=== PATIENT | female | born 1955 | race Caucasian/White ===

== ENCOUNTER 2018-04-19 10:07 | Day surgery (SDC) | payer OTHER ==
[2018-04-18 15:49] VITALS: BMI 28.1
[2018-04-19] MEDS ORDERED: PROPOFOL 20 ML ONE (10:24)
[2018-04-19] MEDS ORDERED: Bupivacaine/Epinephrine 0.25% 30 ML VIAL ONE (10:28)
[2018-04-19] MEDS ORDERED: Bupivacaine HCl 0.5%/Epinephrine 1:200,000/PF 30 ml Vial ONE ×2 (10:28→15:38)
[2018-04-19] MEDS ORDERED: Fentanyl 100 MCG/2 ML VIAL ONE (10:29)
[2018-04-19] MEDS ORDERED: CEFAZOLIN/Water 2 GM/20 ML SYRINGE ONE (10:46)
[2018-04-19 10:53] LABS: #Basophils 0.1 thou/uL (0.0-0.2); #Lymphocytes 1.8 thou/uL (1.20-3.40); #Monocytes 0.4 thou/uL (0.11-0.59); #Neutrophils 3.3 thou/uL (1.40-6.50); %Basophils 1.8 % (0.0-1.0); %Eosinophils 0.8 % (0.0-10.0); %Lymphocytes 31.6 % (21.0-51.0); %Monocytes 7.1 % (0.0-10.0); %Neutrophils 58.7 % (42.0-75.0); Hemoglobin 13.8 g/dL (12.0-16.0); Mean Corpuscular HGB CONC 33.3 g/dL (32.0-36.0); Mean Corpuscular Hemoglobin 30.8 pg (27.0-31.0); Mean Corpuscular Volume 92.4 fl (81.0-99.0); Mean Platelet Volume 6.5 fL (7.4-10.4); Platelet Count 278 thou/uL (130-400); RBC Distribution Width 12.3 % (11.5-14.5); Red Blood Cell (RBC) Count 4.48 mill/uL (4.20-5.40); White Blood Cell (WBC) Count 5.6 thou/uL (4.8-10.8)
[2018-04-19 11:09] LABS: Anion Gap 12 mmol/L (10-20); BUN (Urea Nitrogen) 26 mg/dL (9.8-20.1); Calc. Creatinine Clearance 72 mL/min (70-130); Calcium 9.6 mg/dL (7.8-10.44); Carbon Dioxide 27 mmol/L (23-31); Chloride 106 mmol/L (98-107); Estimated GFR-MDRD 68; Glucose 85 mg/dL (80-115); Potassium 4.3 mmol/L (3.5-5.1); Sodium 141 mmol/L (136-145)
[2018-04-19] MEDS ORDERED: Lidocaine 2% w/Epinephrine 1:200K 20 ML VIAL ONE (15:38)
[2018-04-19] MEDS ORDERED: Lidocaine 1% PF 5 ML VIAL ONE (15:53)
[2018-04-19] MEDS ORDERED: Ketorolac Tromethamine 30 MG/ML VIAL ONE (15:53)
[2018-04-19] MEDS ORDERED: PROPOFOL 200 MG/20 ML VIAL ONE (15:53)
[2018-04-19] MEDS ORDERED: Ondansetron HCl/PF 4 MG/2 ML Vial ONE (15:53)
--- NOTE | 2018-04-21 16:49 | OP ---
DATE OF PROCEDURE: 04/19/2018. PREOPERATIVE DIAGNOSIS: Right knee medial and lateral meniscus tears. POSTOPERATIVE DIAGNOSES: 1. Right knee medial and lateral meniscus tears. 2. 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 SURGERIES PERFORMED: 1. Right knee arthroscopy with partial medial and lateral meniscectomies. 2. Removal of any loose unstable cartilage flaps at the knee. SURGEON: Russel Gonzales M.D. FLOUR DISTRIBUTOR: None. BLOOD LOSS: Minimal. COMPLICATIONS: None. ANESTHESIA: She had general anesthetic and also had local knee block. She went to recovery in stable condition. INDICATIONS: A 62-year-old active female comes in with continued problems with catching and swelling in the knee and despite nonoperative treatment continued to have her symptoms. We discussed the operative treatment options including a knee replacement versus general knee arthroscopy, and she wished for the knee arthroscopy. OPERATIVE PROCEDURE: After all appropriate consent forms were explained and signed, she was taken to the operating room and at this time was given general anesthetic. Once anesthesia was appropriate, a tourniquet was placed onto the right thigh and the leg was placed in an arthroscopic leg gonzalez. The leg was then prepped and draped in the standard surgical fashion. Limb was exsanguinated and tourniquet was taken to 300 mmHg. A lateral portal was established and the scope was placed into the knee joint. Needle localization technique was then used to make a medial working portal. Diagnostic arthroscopy commenced and notched, ACL and PCL probe found to be intact. Medial compartment showed some grade II chondral changes as well as some grade 3 chondral changes on the femur as well the tibial plateau. Any loose cartilage flaps were gently debrided. There was a complex degenerative tear at posterior horn of the medial meniscus and a partial meniscectomy was performed using meniscal biter and shaver back to a stable base. Once this was done, attention was turned to the lateral compartment, again some degenerative tearing was noted in the body and the posterior horn of the lateral meniscus. Partial meniscectomy was performed again using meniscal biter and shaver. There were some grade II changes on the lateral tibial plateau. The lateral femur overall was in good condition. The gutters were then swept through and no loose bodies noted. There were some significant osteophytes noted on the medial and lateral femoral condyles. We then went to the suprapatellar pouch. There were multiple small cartilaginous loose bodies which were then removed with the suction shaver device. Significant synovitis was also debrided with the suction shaver. The patella and trochlea were noted to have some stable chondral changes, especially the trochlea. The patella overall was in good condition. At this time, scope was removed, knee was drained, and portals closed with simple nylon stitch. Bulky sterile dressing was applied and the tourniquet let down. Toes pinked up nicely. The patient was awakened and taken to the recovery room in stable condition. All counts were correct at the end of the case. She received preoperative IV antibiotics. LATRELL
== END 2018-04-19 13:48 | disposition home or self-care (01) ==
LOC: CANPRESDC → SDC 10:07
PROVIDERS: ATTEND Orthopaedic Surgery
PROC: 0SBC4ZZ Excision of Right Knee Joint, Percutaneous Endoscopic Approach (ICD-10-PCS; principal; 2018-04-19)
DX: M23.321 Other meniscus derangements, posterior horn of medial meniscus, right knee (principal); M23.351 Other meniscus derangements, posterior horn of lateral meniscus, right knee; M94.261 Chondromalacia, right knee; F41.9 Anxiety disorder, unspecified; F32.9 Major depressive disorder, single episode, unspecified; E78.00 Pure hypercholesterolemia, unspecified; E55.9 Vitamin D deficiency, unspecified; E05.00 Thyrotoxicosis with diffuse goiter without thyrotoxic crisis or storm; Z79.899 Other long term (current) drug therapy
CPT/HCPCS: 80048; 85025; 93005; 93010; G8978-GP-CJ; G8979-GP-CJ; G8980-GP-CJ; J0670; J1885; J2001; J2405; J2704; J3010

== ENCOUNTER 2019-08-19 09:31 | Outpatient (CLI) | payer MEDICARE ==
[2019-08-19 11:31] LABS: #Eosinphils 0.1 thou/uL (0.0-0.7); #Lymphocytes 1.5 thou/uL (1.20-3.40); #Monocytes 0.5 thou/uL (0.11-0.59); #Neutrophils 2.7 thou/uL (1.40-6.50); %Basophils 0.8 % (0.0-1.0); %Eosinophils 1.6 % (0.0-10.0); %Monocytes 10.7 % (0.0-10.0); %Neutrophils 55.9 % (42.0-75.0); Hemoglobin 13.5 g/dL (12.0-16.0); Mean Corpuscular Hemoglobin 31.2 pg (27.0-31.0); Mean Corpuscular Volume 91.9 fL (78.0-98.0); Mean Platelet Volume 7.4 fL (7.4-10.4); Platelet Count 235 thou/uL (130-400); RBC Distribution Width 12.1 % (11.5-14.5); Red Blood Cell (RBC) Count 4.32 mill/uL (4.20-5.40); White Blood Cell (WBC) Count 4.9 thou/uL (4.8-10.8)
[2019-08-19 11:34] LABS: Anion Gap 11 mmol/L (10-20); BUN (Urea Nitrogen) 29 mg/dL (9.8-20.1); Calc. Creatinine Clearance 0 mL/min (70-130); Calcium 9.6 mg/dL (7.8-10.44); Carbon Dioxide 27 mmol/L (23-31); Chloride 106 mmol/L (98-107); Estimated GFR-MDRD 55; Glucose 60 mg/dL (80-115); Potassium 4.3 mmol/L (3.5-5.1); Sodium 140 mmol/L (136-145)
== END 2019-08-19 09:32 | disposition home or self-care (01) ==
LOC: LABBT 09:31
PROVIDERS: ATTEND Orthopaedic Surgery
DX: Z01.818 Encounter for other preprocedural examination (principal); S83.207A Unspecified tear of unspecified meniscus, current injury, left knee, initial encounter
CPT/HCPCS: 80048; 85025; 93005; 93010

== ENCOUNTER 2019-08-22 08:16 | Day surgery (SDC) | payer MEDICARE ==
[2019-08-22] MEDS ORDERED: Fentanyl 100 MCG/2 ML VIAL ONE ×2 (09:11→10:06)
[2019-08-22] MEDS ORDERED: Midazolam HCl 2 mg/2 ml Vial ONE (09:11)
--- NOTE | 2019-08-22 15:27 | OP ---
DATE OF PROCEDURE: 08/22/2019 PREOPERATIVE DIAGNOSIS: Left knee medial and lateral meniscus tears. POSTOPERATIVE DIAGNOSES: 1. Left knee medial and lateral meniscus tears. 2. Grade 4 lesions on the medial femoral condyle, medial tibial plateau, lateral femoral condyle, and the trochlea. PROCEDURES PERFORMED: 1. Left knee arthroscopy, partial medial and lateral meniscectomies. 2. Debridement and shaving of unstable chondral flaps throughout the knee. CHARGE OUT CLERK: None. COMPLICATIONS: None. ESTIMATED BLOOD LOSS: Minimal. ANESTHESIA: The patient did have a general anesthetic as well as a local knee block. DISPOSITION: She went to recovery room in stable condition. INDICATIONS: Ms. Barksdale is a 64-year-old female, who is active, who had degenerative knee arthroscopy done in her other knee a year or 2 ago and has done very well from this. At this time, she is having a very hard time getting around on her knee. She is having to use an ambulatory assistive device and her knee is swelling and she was found to have significant meniscal tears and at this time opted for surgery. DESCRIPTION OF PROCEDURE: After all appropriate consent forms were explained and signed, she was taken to the operating room and at this time was given general anesthetic. Once the level of anesthesia was appropriate, tourniquet was placed on left thigh. Leg was then placed in arthroscopic leg gonzalez. The limb was then prepped and draped in standard surgical fashion. The limb was exsanguinated and tourniquet was taken to 300 mmHg. Inferolateral portal was established. The scope was placed into the knee joint. A needle localization technique was then used to make our medial working portal. Diagnostic arthroscopy commenced in the notch. The ACL and PCL were probed, found to be intact. The medial femoral condyle had large area of grade 3 and just small grade 4 areas. There was not any significant unstable cartilage flaps noted. The medial tibial plateau was also noted to have some grade 2 and 3 changes. There was one small area of grade 4 change on the medial tibial plateau. There was a complex degenerative tear noted of the body and posterior horn of the medial meniscus and a partial meniscectomy was performed using meniscal biter and shaver. Lateral compartment was evaluated. There was a grade 4 lesion on the lateral femoral condyle with some large unstable chondral flaps on the periphery. These were taken down with a shaver to get to stable clement and in the end, this was approximately 8-mm medial-lateral and a little bit over a centimeter from anterior-posterior. The remaining portion of the cartilage on the lateral femoral condyle was in good condition. There was a degenerative tear of the lateral meniscus including the body and the posterior horn and again, partial meniscectomy was performed using meniscal biter and shaver. There was also grade 2 and 3 change noted on the lateral tibial plateau. At this time, the gutters were swept through. There were no loose bodies noted. However, there were some osteophytes noted of both medial and lateral. We then got the patellofemoral joint and found the trochlea and the patella to have grade 3 and 4 changes. No significant loose cartilage flaps were noted. We then evaluated the knee joint through full range of motion and found the patient to have an impinging osteophyte on the tibia just distal to the ACL insertion. This was taken down with the shaver, so would no longer hit the femur in full extension. Once this was done, the scope was removed. Knee was drained. Portals were closed with simple nylon stitch. Bulky sterile dressing was applied. Tourniquet was let down. Toes pinked up nicely. The patient was awakened. She was taken to the recovery room in stable condition. All counts were correct at the end of the case and she did receive preoperative IV antibiotics. Job ID: [id number]
== END 2019-08-22 12:30 | disposition home or self-care (01) ==
LOC: SDC 08:16
PROVIDERS: ATTEND Orthopaedic Surgery
PROC: 0SBD4ZZ Excision of Left Knee Joint, Percutaneous Endoscopic Approach (ICD-10-PCS; principal; 2019-08-22)
PROC: 0SBD4ZZ Excision of Left Knee Joint, Percutaneous Endoscopic Approach (ICD-10-PCS; 2019-08-22)
DX: M23.322 Other meniscus derangements, posterior horn of medial meniscus, left knee (principal); M23.352 Other meniscus derangements, posterior horn of lateral meniscus, left knee; M23.8X2 Other internal derangements of left knee; F41.8 Other specified anxiety disorders; I48.91 Unspecified atrial fibrillation; E78.00 Pure hypercholesterolemia, unspecified; E05.00 Thyrotoxicosis with diffuse goiter without thyrotoxic crisis or storm; Z79.899 Other long term (current) drug therapy
CPT/HCPCS: J0690; J2250; J3010

== ENCOUNTER 2023-01-04 09:45 | Outpatient (CLI) | payer MEDICARE | END 2023-01-04 09:46 | disposition home or self-care (01) | LOC: LABBT 09:45 | PROVIDERS: ATTEND Orthopaedic Surgery | DX: Z01.818 Encounter for other preprocedural examination (principal); M17.11 Unilateral primary osteoarthritis, right knee | CPT/HCPCS: 71046; 80048; 81003; 85025; 85610; 86850; 86900; 86901; 87081; 93005; 93010 ==

== ENCOUNTER 2023-01-08 05:34 | Observation (INO) | payer MEDICARE ==
[2023-01-04 11:51] LABS: #Basophils 0.1 10x3/uL (0.0-0.2); #Eosinphils 0.1 10x3/uL (0.0-0.5); #Monocytes 0.4 10x3/uL (0.0-1.1); #Neutrophils 2.7 10x3/uL (1.5-8.4); %Eosinophils 1.4 % (0.0-6.0); %Lymphocytes 33.4 % (18.0-47.0); %Monocytes 8.1 % (0.0-10.0); %Neutrophils 55.9 % (40.0-75.0); Hemoglobin 12.9 g/dL (12.0-15.5); Mean Corpuscular HGB CONC 32.3 g/dL (32.0-36.0); Mean Corpuscular Hemoglobin 30.1 pg (27.0-33.0); Mean Corpuscular Volume 93.2 fl (81.6-98.3); Mean Platelet Volume 9.5 fl (7.4-10.4); Platelet Count 295 10x3/uL (150-450); RBC Distribution Width 13.8 % (11.5-14.5); Red Blood Cell (RBC) Count 4.29 10x6/uL (3.90-5.03); White Blood Cell (WBC) Count 4.9 10x3/uL (3.5-10.5)
[2023-01-04 11:56] LABS: Bilirubin Neg (Negative); Blood, Urine Negative (Negative); Clarity Slightly Cloudy (Clear); Glucose, Urine (Dipstick) Normal (Negative); Ketone, Urine Negative (Negative); Leukocyte 100 (Negative); Nitrite Negative (Negative); Protein, Urine (Dipstick) Negative (Neg-Trace); Urobilinogen Normal mg/dL (Less than 2)
[2023-01-04 12:23] LABS: INR-International Normal Ratio 0.9; Prothrombin Time 9.7 sec (9.5-12.1)
[2023-01-04 12:30] LABS: Anion Gap 15 mmol/L (10-20); BUN (Urea Nitrogen) 27 mg/dL (9.8-20.1); Calc. Creatinine Clearance 0 mL/min (70-130); Calcium 9.6 mg/dL (7.8-10.44); Carbon Dioxide 24 mmol/L (23-31); Chloride 109 mmol/L (98-107); Estimated GFR 59; Glucose 76 mg/dL (80-115); Potassium 4.7 mmol/L (3.5-5.1); Sodium 143 mmol/L (136-145)
[2023-01-08] MEDS ORDERED: Bupivacaine 0.25% HCL 30 ML VIAL ONE (06:29)
[2023-01-08] MEDS ORDERED: Sodium Chloride 0.9% 100 ML ONE ×3 (06:33→14:54)
[2023-01-08] MEDS ORDERED: Tranexamic Acid 1,000 MG/10 ML VIAL ONE (06:33)
[2023-01-08] MEDS ORDERED: Vancomycin 1 GM/200 ML (FROZEN) BAG ONE (06:33)
[2023-01-08] MEDS ORDERED: Lidocaine 1% (PF) 30 ML VIAL ONE ×2 (06:36→07:18)
[2023-01-08] MEDS ORDERED: Fentanyl 100 MCG/2 ML VIAL ONE (06:36)
[2023-01-08] MEDS ORDERED: Midazolam HCl 2 mg/2 ml Vial ONE (06:36)
[2023-01-08] MEDS ORDERED: CEFAZOLIN 2 GM VIAL ONE ×2 (06:58→14:53)
[2023-01-08] MEDS ORDERED: Ondansetron PF 4 MG/2 ML Vial ONE (07:06)
[2023-01-08] MEDS ORDERED: Bupivacaine HCl 0.5%/Epinephrine 1:200,000/PF 30 ml Vial ONE (07:06)
[2023-01-08] MEDS ORDERED: PROPOFOL 200 MG/20 ML VIAL ONE (07:06)
[2023-01-08] MEDS ORDERED: Lidocaine 1% PF 5 ML VIAL ONE (07:06)
[2023-01-08] MEDS ORDERED: Ketorolac Tromethamine 30 MG/ML VIAL ONE ×2 (07:06→14:49)
[2023-01-08] MEDS ORDERED: Dexamethasone 20 MG/5 ML VIAL ONE (07:06)
[2023-01-08] MEDS ORDERED: fentaNYL PF 100 MCG/2 ML SYRINGE ONE (07:07)
[2023-01-08] MEDS ORDERED: methylPREDNISolone Acetate 40 mg/ml Vial ONE (07:20)
[2023-01-08] MEDS ORDERED: diphenhydrAMINE 25 MG CAP PO PRN (07:25)
[2023-01-08] MEDS ORDERED: Ondansetron PF 4 MG/2 ML Vial IVP PRN ×2 (07:25→08:30)
[2023-01-08] MEDS ORDERED: HYDROcodone/Acetaminophen 10/325 mg Tablet PO PRN ×4 (07:25→08:30)
[2023-01-08] MEDS ORDERED: traMADol HCl 50 MG TAB PO PRN ×3 (07:25→08:30)
[2023-01-08] MEDS ORDERED: Promethazine HCl 25 MG/ML VIAL IM PRN ×2 (07:25→08:30)
[2023-01-08] MEDS ORDERED: Acetaminophen 325 MG TAB PO PRN (07:25)
[2023-01-08] MEDS ORDERED: Zolpidem Tartrate 5 MG TAB PO PRN ×2 (07:25→08:30)
[2023-01-08] MEDS ORDERED: Fentanyl 100 MCG/2 ML VIAL SLOW IVP PRN ×2 (07:25→08:17)
[2023-01-08] MEDS ORDERED: Tranexamic Acid 1,000 MG in Sodium Chloride 0.9% 100 ML IVPB SCH (07:30)
[2023-01-08 07:34] LABS: SARS-CoV-2 NAA Rapid Test Not Detected (NotDetected)
[2023-01-08] MEDS ORDERED: Bupivacaine PF 0.5% 30 ML VIAL ONE (08:29)
[2023-01-08] MEDS ORDERED: Ropivacaine 0.2% 550 ML 550 ML NERVE BLCK SCH (08:30)
[2023-01-08] MEDS ORDERED: Ketorolac Tromethamine 30 MG/ML VIAL IVP SCH (14:00)
[2023-01-08] MEDS: Ketorolac Tromethamine 30 MG/ML VIAL IVP SCH ×2 (14:51→18:34)
[2023-01-08] MEDS: CEFAZOLIN 2 GM in Sodium Chloride 0.9% 100 ML IVPB SCH (14:55)
[2023-01-08] MEDS: Sodium Chloride 0.9% 1,000 ML IV SCH ×2 (15:34→18:35)
[2023-01-08] MEDS: Rosuvastatin 10 MG TAB PO SCH (15:35)
[2023-01-08] MEDS: Losartan 25 MG TAB PO SCH (15:35)
[2023-01-08] MEDS: Aspirin 81 mg Enteric Coated Tablet PO SCH ×2 (15:35→20:17)
[2023-01-08 18:40] VITALS: BMI 27.6
[2023-01-08] MEDS ORDERED: Vancomycin 1 GM in Premix Bag 1 BAG IVPB SCH (21:00)
[2023-01-09] MEDS: CEFAZOLIN 2 GM in Sodium Chloride 0.9% 100 ML IVPB SCH (00:31)
[2023-01-09] MEDS: Ketorolac Tromethamine 30 MG/ML VIAL IVP SCH ×3 (00:32→13:13)
[2023-01-09] MEDS: Sodium Chloride 0.9% 1,000 ML IV SCH (03:56)
[2023-01-09] MEDS ORDERED: Levothyroxine 175 MCG TAB PO SCH (06:00)
[2023-01-09 06:30] LABS: Mean Corpuscular HGB CONC 35.5 g/dL (32.0-36.0); Mean Corpuscular Hemoglobin 33.7 pg (27.0-31.0); Mean Corpuscular Volume 95.1 fl (78.0-98.0); Mean Platelet Volume 6.9 fL (7.4-10.4); Platelet Count 200 10x3/uL (130-400); RBC Distribution Width 12.4 % (11.5-14.5); Red Blood Cell (RBC) Count 3.25 mill/uL (4.20-5.40); White Blood Cell (WBC) Count 8.5 10x3/uL (4.8-10.8)
[2023-01-09] MEDS ORDERED: Ferrous Gluconate 324 MG TAB PO SCH (08:00)
[2023-01-09] MEDS: Rosuvastatin 10 MG TAB PO SCH (08:01)
[2023-01-09] MEDS: Aspirin 81 mg Enteric Coated Tablet PO SCH (08:01)
[2023-01-09] MEDS: Losartan 25 MG TAB PO SCH (08:06)
[2023-01-09] MEDS ORDERED: Senokot S 8.6-50 MG TAB PO SCH (09:00)
[2023-01-09] MEDS ORDERED: Multivitamin W/ Minerals 1 TAB PO SCH (09:00)
[2023-01-09 12:49] VITALS: BP 137/73; TEMP 98.1
== END 2023-01-09 14:30 | disposition home or self-care (01) ==
LOC: SDC 05:34 → EDSTATUS 10:00 → SJJU 16:46
PROVIDERS: ADMIT Orthopaedic Surgery; ATTEND Orthopaedic Surgery
PROC: 3E0U33Z Introduction of Anti-inflammatory into Joints, Percutaneous Approach (ICD-10-PCS; principal; 2023-01-08)
PROC: 0SRC0J9 Replacement of Right Knee Joint with Synthetic Substitute, Cemented, Open Approach (ICD-10-PCS; 2023-01-08)
DX: M17.0 Bilateral primary osteoarthritis of knee (principal); E78.00 Pure hypercholesterolemia, unspecified; E55.9 Vitamin D deficiency, unspecified; Z79.890 Hormone replacement therapy; Z79.899 Other long term (current) drug therapy; Z20.822 Contact with and (suspected) exposure to COVID-19
CPT/HCPCS: 20610; 20985; 27447; 80048; 81003; 85025; 85027; 85610; 86850; 86900; 86901; 87081; 97110 ×2; 97116 ×2; A4306; J3370; U0002; 36415; C1713; C1776; J1030; J1100; J1885; J2001; J2250; J2405; J2704; J2795; J3010; J3490; S0020